=== PATIENT | female | born 1940 | race Caucasian/White ===

== ENCOUNTER 2019-04-10 15:37 | Emergency (ER) | payer OTHER ==
[~2019-04-10] VITALS: Ht 157.5 cm; Wt 63.5 kg
[2019-04-10 16:04] VITALS: BP_SYST 130
--- NOTE | 2019-04-10 16:08 | NUR ---
Patient to ER bed H1 to gown for evaluation. Side rails up.
--- NOTE | 2019-04-10 16:40 | NUR ---
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
[2019-04-10 16:50] LABS: EOSINOPHILS # (AUTO) 0.2 K/uL (0.0-0.4); EOSINOPHILS % (AUTO) 5.3 % (0.0-4.0); HEMATOCRIT 36.6 % (36-48); HEMOGLOBIN 11.5 g/dL (12.0-16.0); LYMPHOCYTES # (AUTO) 1.3 K/uL (1.0-5.5); LYMPHOCYTES % (AUTO) 33.8 % (20.5-51.5); MEAN CORPUSCULAR HEMOGLOBIN 26 pg (27-31); MEAN CORPUSCULAR HGB CONC 32 % (32-36); MEAN CORPUSCULAR VOLUME 83 fL (79.0-98.0); MONOCYTES # (AUTO) 0.6 K/uL (0.0-1.0); NEUTROPHILS # (AUTO) 1.8 K/uL (1.8-7.7); NEUTROPHILS % (AUTO) 45.9 % (40.0-70.0); PLATELET COUNT (AUTO) 316 K/uL (130-430); RED BLOOD CELL COUNT(AUTO) 4.41 MIL/uL (4.2-6.2); RED CELL DISTRIBUTION WIDTH 15.2 % (9.0-15.0)
[2019-04-10 16:58] LABS: ANION GAP 5 (5-15); CALCIUM 8.8 mg/dL (8.4-11.0); CHLORIDE 106 mmol/L (98-107); CREATININE 0.84 mg/dL (0.55-1.30); GLUCOSE 104 mg/dL (70-99); SODIUM SERUM 143 mmol/L (136-145); UREA NITROGEN, BLOOD 24 mg/dL (8-21)
--- NOTE | 2019-04-10 17:00 | NUR ---
ER at bedside examining patient.
[2019-04-10 17:04] LABS: ALANINE AMINOTRANSFERASE 16 U/L (12-78); ALBUMIN 3.2 g/dL (3.4-4.8); ASPARTATE AMINOTRANSFERASE 16 U/L (10-37); TOTAL BILIRUBIN 0.3 mg/dL (0.0-1.0)
--- NOTE | 2019-04-10 17:10 | NUR ---
[facility] ambulance for medical clearance. [facility] [place]. going to [facility].vital sign stable, afebrile. no sob noted. family at the bedside. no other concerned noted.
--- NOTE | 2019-04-10 17:40 | NUR ---
unable to collect urine sample. MD taylor informed.stated it's ok.
--- NOTE | 2019-04-10 17:43 | NUR ---
telephone report given to Michelle GOODE from [facility], patient is going to room 56C. phone # [phone].
--- NOTE | 2019-04-10 18:20 | NUR ---
Ambulance crew is here report given. patient is going to [facility]. came for medical clearance. pt daughter aware and agreed. pt vital sign stable, afebrile. no other concerned noted.
[2019-04-10 18:35] VITALS: BP_SYST 136
== END 2019-04-10 18:20 ==
LOC: SED 15:37
DX: F03.90 Unspecified dementia, unspecified severity, without behavioral disturbance, psychotic disturbance, mood disturbance, and anxiety (principal)
CPT/HCPCS: 36415; 71045; 80053; 85025; 93005; 99285